=== PATIENT | female | born 1940 | race Caucasian/White ===

== ENCOUNTER 2022-08-05 15:34 | Outpatient (CLI) | payer MEDICARE, OTHER ==
[~2022-08-05 15:34] MED LIST: Iopamidol 300 61% 100 ML VIAL FS ONE
== END 2022-08-05 15:35 | disposition home or self-care (01) ==
LOC: CSHCT 15:34
PROVIDERS: ATTEND Student in an Organized Health Care Education/Training Program
DX: K44.9 Diaphragmatic hernia without obstruction or gangrene (principal); J98.11 Atelectasis; J98.4 Other disorders of lung; M47.814 Spondylosis without myelopathy or radiculopathy, thoracic region; M41.9 Scoliosis, unspecified
CPT/HCPCS: 71260; 82565; Q9967